=== PATIENT | female | born 2000 | race Caucasian/White ===

== ENCOUNTER 2019-01-11 21:50 | Emergency (ER) | payer SELFPAY ==
[2019-01-11] MEDS: IBUPROFEN 200 MG TAB PO (23:51)
[2019-01-11] MEDS: ACETAMINOPHEN 325 MG TAB PO (23:51)
== END 2019-01-12 00:59 | disposition home or self-care (01) ==
LOC: FTE 01-12 00:59
DX: S93.402A Sprain of unspecified ligament of left ankle, initial encounter (principal); X50.1XXA Overexertion from prolonged static or awkward postures, initial encounter; Y92.9 Unspecified place or not applicable
CPT/HCPCS: 73610; 99283-25